=== PATIENT | female | born 1950 | race Two or more races ===

== ENCOUNTER → 2016-11-28 | Outpatient (CLI) | payer MEDICARE, OTHER ==
--- NOTE | 2016-11-30 11:04 | HM ---
Date Performed: 11/29/2016 Time Performed: 12:10:00 HOOKUP DATE: 11/29/16 12:10:00 PM Tue ANALYSIS START TIME: 11/29/2016 12:15:00 PM ANALYSIS END TIME: 11/30/2016 11:38:00 AM PATIENT AGE: 66 PATIENT HEIGHT PATIENT WEIGHT DRUG LIST PATIENT DIAGNOSIS: palpitations TEST NARRATIVE: The patient's average heart rate was 78 BPM. Heart rates greater than 120 B PM were noted 8% of the time. Heart rates less than 50 BPM were noted 9% of the time. No pauses exceeding 2.0 seconds were noted. 6723 ventricular ectopics, which represented 6% of the total be at count, were noted. The highest ventricular ectopic frequency occurred from 03:00 PM to 04:00 PM T ue. During this time 825 VE(s) occurred. Ventricular ectopics were observed as 6499 isolated beat(s ) and as 111 couplet(s). No runs were noted. Some of the ventricular beats occurred in bigeminal cy cles. 1 supraventricular ectopics, which represented < 1% of the total beat count, were noted. T he highest supraventricular ectopic frequency occurred from 08:00 AM to 09:00 AM Wed. During this ti me 1 SVE(s) occurred. Multiple episodes of ST depression (defined as -1.0 mm or more) were noted in channel 1. The maximum depression of -2.4 mm occurred at 06:51:14 PM Tue. Multiple episodes of ST depression (defined as -1.0 mm or more) were noted in channel 2. The maximum depression of -4.6 mm occurred at 07:03:32 PM Tue. Multiple episodes of ST depression (defined as -1.0 mm or more) wer e noted in channel 3. The maximum depression of -2.2 mm occurred at 05:12:20 PM Tue. TEST INTERPRETATION: Sinus rhythm and sinus tachycardia Occasional PVCs Signed by : Han Sood
== END ==
LOC: HCAV 12:32
PROVIDERS: ATTEND Family Medicine
DX: I49.3 Ventricular premature depolarization (principal); R00.2 Palpitations
CPT/HCPCS: 93225; 93226

== ENCOUNTER 2017-12-09 23:12 | Observation (INO) | payer MEDICARE, OTHER ==
[~2017-12-09] VITALS: Ht 162.6 cm; Wt 66.7 kg
[2017-12-09 23:20] VITALS: BP 170/106; PULSE 86; RESP 20; TEMP 97.8; O2SAT 98
[2017-12-09] MEDS ORDERED: TRUS2SOL LEFT EYE (23:29)
[2017-12-09] MEDS ORDERED: LUMI0.01 LEFT EYE (23:29)
[2017-12-09] MEDS ORDERED: SODIUM CHLORIDE 0.9% FLUSH 10 ML FLUSH IVF PRN (23:30)
[2017-12-09 23:34] LABS: AUTOMATED NEUTROPHIL # 3.9 TH/MM3 (1.8-7.7); BASOPHIL % 0.6 % (0.0-2.0); EOSINOPHIL # 0.2 TH/MM3 (0-0.4); EOSINOPHIL % 2.2 % (0.0-4.0); HEMOGLOBIN 14.4 GM/DL (11.6-15.3); LYMPHOCYTE # 2.3 TH/MM3 (1.0-4.8); MEAN CORPUSCULAR HEMOGLOBIN 29.9 PG (27.0-34.0); MEAN CORPUSCULAR HGB CONC 33.6 % (32.0-36.0); MEAN PLATELET VOLUME 9.4 FL (7.0-11.0); MONO % 6.8 % (0.0-8.0); MONOCYTE # 0.5 TH/MM3 (0-0.9); NEUT % 56.4 % (16.0-70.0); PLATELET COUNT 210 TH/MM3 (150-450); RED BLOOD COUNT 4.83 MIL/MM3 (4.00-5.30); RED CELL DISTRIBUTION WIDTH 12.4 % (11.6-17.2); WHITE BLOOD COUNT 6.9 TH/MM3 (4.0-11.0)
[2017-12-09 23:42] VITALS: O2SAT 98
[2017-12-09 23:42] LABS: CHLORIDE 107 MEQ/L (98-107); SODIUM (NA) 140 MEQ/L (136-145)
[2017-12-09 23:45] LABS: CALCIUM 9.3 MG/DL (8.5-10.1)
[2017-12-09 23:46] LABS: ALBUMIN 3.7 GM/DL (3.4-5.0); BICARBONATE 28.4 MEQ/L (21.0-32.0); BLOOD UREA NITROGEN 17 MG/DL (7-18); GLUCOSE,RANDOM 96 MG/DL (74-106); MAGNESIUM 2.4 MG/DL (1.5-2.5)
[2017-12-09 23:47] LABS: PROTHROMBIN TIME - PATIENT 10.3 SEC (9.8-11.6)
[2017-12-09 23:48] LABS: ALT (GPT) 24 U/L (10-53)
[2017-12-09 23:49] LABS: AST (GOT) 23 U/L (15-37); CREATININE 0.87 MG/DL (0.50-1.00); GLOMERULAR FILTRATION RATE 65 ML/MIN (>89)
[2017-12-09 23:50] LABS: TOTAL BILIRUBIN ADULT 0.2 MG/DL (0.2-1.0); TOTAL PROTEIN 7.4 GM/DL (6.4-8.2)
[2017-12-09 23:51] LABS: ALKALINE PHOSPHATASE 145 U/L (45-117)
--- NOTE | 2017-12-09 23:53 | RADRPT ---
EXAM DATE/TIME: 12/09/2017 23:27 [place] COMPARISON: No previous studies available for comparison. INDICATIONS : Chest pain. MEDICAL HISTORY : Glaucoma. SURGICAL HISTORY : section. Eye surgery, right. ENCOUNTER: Initial ACUITY: 1 day PAIN SCORE: 5/10 LOCATION: Left chest FINDINGS: The cardiac silhouette is normal in transverse diameter. The lungs are free of acute parenchymal opac ity. No effusions are identified. There is mild multilevel degenerative change throughout the spine. CONCLUSION: 1. No acute cardiopulmonary disease. Shaw Nichols MD on December 09, 2017 at 23:51 Board Certified Radiologist. This report was verified electronically.
[2017-12-09 23:54] LABS: TROPONIN I 0.03 NG/ML (0.02-0.05)
[2017-12-10] VITALS (13 sets, daily range): BP systolic 110–162; BP diastolic 57–98; PULSE 52–78; RESP 9–18; TEMP 97.3–98.5; O2SAT 97–100
--- NOTE | 2017-12-10 00:13 | PD ---
HPI Chief Complaint: Cardiac Complaint Time Seen by Provider: 23:21 Travel History International Travel<30 days: No Contact w/Intl Traveler<30days: No Traveled to known affect area: No History of Present Illness HPI The patient is a 67-year-old female with no known history of heart disease who complains of palpitations for approximately 3 hours now. She denies any shortness of breath. She denies any syncopal or near syncopal spells. She denies any chest pain but does have a minimal amount of tightness associated with these palpitations. Her last stress test was 10-12 years ago. She does not smoke. She does not abuse alcohol and is not in any withdrawal of any alcohol or medication. She denies more than a cup of coffee in the morning and does not drink tea very often. She never drinks campos. The patient does have a history of premature ventricular beats. She had a Holter monitor done about a year ago on November 292016. The results show 6723 ventricular ectopic beats which represented 6% of the total beat count. There were episodes of bigeminy present. There were 111 couplets. No runs were noted. PFSH Past Medical History Glaucoma: Yes Past Surgical History Eye Surgery: Yes (for glaucoma) Social History Alcohol Use: Yes Tobacco Use: No Substance Use: No Allergies-Medications (Allergen,Severity, Reaction): Uncoded Allergies: SEAFOOD (Allergy, Severe, Anaphylaxis, 12/09/17) Reported Meds & Prescriptions Reported Meds & Active Scripts Active Reported Trusopt Opth Drops (Dorzolamide HCl) 2% Soln 1 Drop LEFT EYE BID Lumigan Opth Drops (Bimatoprost) 0.01% Soln 1 Drop LEFT EYE HS Review of Systems Except as stated in HPI: all other systems reviewed are Neg Physical Exam Narrative GENERAL: The patient is alert, oriented 3 in no apparent distress. Her blood pressure 170/106 but the rest of her vital signs are normal. Repeat blood pressure is 153/92. SKIN: Focused skin assessment warm/dry. HEAD: Atraumatic. Normocephalic. EYES: Pupils equal and round. No scleral icterus. No injection or drainage. ENT: No nasal bleeding or discharge. Mucous membranes pink and moist. NECK: Trachea midline. No JVD. CARDIOVASCULAR: Regular rate and rhythm. No murmur appreciated. Occasional PVCs are heard and seen on the monitor. RESPIRATORY: No accessory muscle use. Clear to auscultation. Breath sounds equal bilaterally. GASTROINTESTINAL: Abdomen soft, non-tender, nondistended. Hepatic and splenic margins not palpable. MUSCULOSKELETAL: No obvious deformities. No clubbing. No cyanosis. No edema. NEUROLOGICAL: Awake and alert. No obvious cranial nerve deficits. Motor grossly within normal limits. Normal speech. PSYCHIATRIC: Appropriate mood and affect; insight and judgment normal. The patient does not appear to be particularly anxious. Data Data Last Documented VS Vital Signs Date Time Temp Pulse Resp B/P (MAP) Pulse Ox O2 Delivery O2 Flow Rate FiO2 12/09/17 23:43 90 98 Room Air 12/09/17 23:20 20 170/106 (127) Orders Orders Electrocardiogram (12/09/17 23:23) Ckmb (Isoenzyme) Profile (12/09/17 23:23) Complete Blood Count With Diff (12/09/17 23:23) Comprehensive Metabolic Panel (12/09/17 23:23) Magnesium (Mg) (12/09/17 23:23) Prothrombin Time / Inr (Pt) (12/09/17 23:23) Act Partial Throm Time (Ptt) (12/09/17 23:23) Troponin I (12/09/17 23:23) Ecg Monitoring (12/09/17 23:23) Iv Access Insert/Monitor (12/09/17 23:23) Oximetry (12/09/17 23:23) Oxygen Administration (12/09/17 23:23) Sodium Chloride 0.9% Flush (Ns Flush) (12/09/17 23:30) Chest, Pa & Lat (12/09/17 23:23) CKMB (12/09/17 23:25) CKMB% (12/09/17 23:25) Labs Laboratory Tests Test 12/09/17 23:25 White Blood Count 6.9 TH/MM3 Red Blood Count 4.83 MIL/MM3 Hemoglobin 14.4 GM/DL Hematocrit 43.0 % Mean Corpuscular Volume 89.0 FL Mean Corpuscular Hemoglobin 29.9 PG Mean Corpuscular Hemoglobin Concent 33.6 % Red Cell Distribution Width 12.4 % Platelet Count 210 TH/MM3 Mean Platelet Volume 9.4 FL Neutrophils (%) (Auto) 56.4 % Lymphocytes (%) (Auto) 34.0 % Monocytes (%) (Auto) 6.8 % Eosinophils (%) (Auto) 2.2 % Basophils (%) (Auto) 0.6 % Neutrophils # (Auto) 3.9 TH/MM3 Lymphocytes # (Auto) 2.3 TH/MM3 Monocytes # (Auto) 0.5 TH/MM3 Eosinophils # (Auto) 0.2 TH/MM3 Basophils # (Auto) 0.0 TH/MM3 CBC Comment DIFF FINAL Differential Comment Prothrombin Time 10.3 SEC Prothromb Time International Ratio 1.0 RATIO Activated Partial Thromboplast Time 25.7 SEC Blood Urea Nitrogen 17 MG/DL Creatinine 0.87 MG/DL Random Glucose 96 MG/DL Total Protein 7.4 GM/DL Albumin 3.7 GM/DL Calcium Level 9.3 MG/DL Magnesium Level 2.4 MG/DL Alkaline Phosphatase 145 U/L Aspartate Amino Transf (AST/SGOT) 23 U/L Alanine Aminotransferase (ALT/SGPT) 24 U/L Total Bilirubin 0.2 MG/DL Sodium Level 140 MEQ/L Potassium Level 3.6 MEQ/L Chloride Level 107 MEQ/L Carbon Dioxide Level 28.4 MEQ/L Anion Gap 5 MEQ/L Estimat Glomerular Filtration Rate 65 ML/MIN Total Creatine Kinase 172 U/L Creatine Kinase MB 2.6 NG/ML Troponin I 0.03 NG/ML MDM Medical Decision Making Medical Screen Exam Complete: Yes Emergency Medical Condition: Yes Medical Record Reviewed: Yes Interpretation(s) The EKG shows sinus rhythm with a rate of about 98, left bundle branch block and frequent ectopic premature complexes. On apparently she has a run of trigeminy. There is no acute ST elevation or depression. The coagulation profile is normal. The CBC is normal. The chest x-ray shows no acute cardiopulmonary disease. The complete metabolic profile shows a GFR of 65 and alkaline phosphatase of 145 but is otherwise normal. The cardiac enzymes are normal. Differential Diagnosis Ventricular premature beats, acute coronary syndrome, electrolyte disorder, anemia Narrative Course The patient has premature ventricular beats. She has had this for over a year. She has not had a stress test in over 10 years and I encouraged her to have a stress test tonight. I cannot explain why she gets these beats from electrolyte disorder, anemia, cardiac ischemia or ingestion of cardiac stimulants. The patient will be sent to the chest pain center for stress testing. Diagnosis Primary Impression: Premature ventricular beats Admitting Information Admitting Physician Requests: Observation Shade Talley MD Dec 10, 2017 00:13
[2017-12-10] MEDS ORDERED: TEMAZEPAM 15 MG CAP PO PRN (00:30)
[2017-12-10] MEDS ORDERED: SODIUM CHLORIDE 0.9% FLUSH 10 ML FLUSH IV FLUSH PRN (00:30)
[2017-12-10] MEDS ORDERED: ACETAMINOPHEN 500 MG CPLT PO PRN (00:30)
[2017-12-10 03:20] LABS: TROPONIN I 0.04 NG/ML (0.02-0.05)
[2017-12-10 06:49] LABS: TROPONIN I 0.04 NG/ML (0.02-0.05)
[2017-12-10] MEDS ORDERED: SODIUM CHLORIDE 0.9% FLUSH 10 ML FLUSH IV FLUSH SCH (09:00)
--- NOTE | 2017-12-10 09:40 | HHI.DCPOC ---
Discharge Care Plan Diagnosis: (1) Premature ventricular beats Goals to Promote Your Health * To prevent worsening of your condition and complications * To maintain your health at the optimal level Directions to Meet Your Goals Take your medications as prescribed Follow your dietary instruction Follow activity as directed Keep your appointments as scheduled Take your immunizations and boosters as scheduled If your symptoms worsen call your PCP, if no PCP go to Urgent Care Center or Emergency Room Smoking is Dangerous to Your Health. Avoid second hand smoke Call the 24-hour hour crisis hotline for domestic abuse at Clayton Talley Dec 10, 2017 09:40
--- NOTE | 2017-12-10 10:02 | HHI.HP ---
[facility] Charline Shin MD Admission Diagnosis Premature ventricular beats, chest pain Diagnoses: (1) Premature ventricular beats Diagnosis: Principal Chief Complaint: Irregular heart rate Travel History International Travel<30 Days: No Contact w/Intl Traveler <30 Da: No Traveled to Known Affected Are: No History of Present Illness This is a 67-year-old female with known history of ventricular arrhythmia. Patient had workup done approximately a year ago with Holter monitor. She was followed by her primary call and she believes that Dr. Bianchi evaluated her Holter monitor last year and did not indicate any treatment. The patient states that she does get intermittent episodes monthly. They are not consistent with any specific days or any specific times. She states that yesterday she noticed that she had her heart rate spiked and she was using her watch and heart rate monitor. She states that her heart rate was in the 149 and then it would drop down into the 40s. Whenever it dropped down she feels a little discomfort in her chest. There is no radiation to her neck, back, shoulder, arm. Denied any nausea, vomiting, diaphoresis, shortness of breath, dyspnea, lightheadedness or dizziness. Because her heart rate was up to 140s and dropped down to 40 she came to emergency department for evaluation. She did have workup done emergency department in was unremarkable. There has been no episodes of any tachycardia since being in the hospital. ER physician recommended patient be observed in the hospital for further recommendations. Patient only drinks 1 cup of coffee daily. Review of Systems Cardiovascular: COMPLAINS OF: Palpitations Except as stated in HPI: all other systems reviewed are Neg Past Family Social History Past Medical History Ventricular arrhythmia with premature ventricular complexes Glaucoma Past Surgical History Right eye surgery for glaucoma Reported Medications Reported Meds & Active Scripts Active Reported Trusopt Opth Drops (Dorzolamide HCl) 2% Soln 1 Drop LEFT EYE BID Lumigan Opth Drops (Bimatoprost) 0.01% Soln 1 Drop LEFT EYE HS Allergies: Uncoded Allergies: SEAFOOD (Allergy, Severe, Anaphylaxis, 12/09/17) Family History Review significant for mother at age 34 from breast cancer. Father at age 68 from diabetes Social History Patient denies any tobacco or illicit drug use. She does drink alcohol socially Physical Exam Vital Signs Vital Signs Date Time Temp Pulse Resp B/P (MAP) Pulse Ox O2 Delivery O2 Flow Rate FiO2 12/10/17 08:16 98.5 12/10/17 07:33 99 21 12/10/17 04:36 60 12/10/17 04:36 97.3 60 12 118/98 (105) 99 12/10/17 04:10 80 16 142/69 (93) 99 12/10/17 03:39 98 21 12/10/17 02:57 78 16 142/79 (100) 100 Room Air 12/10/17 02:57 16 100 Room Air 12/10/17 02:00 67 18 162/75 (104) 99 Room Air 12/10/17 00:30 78 18 151/86 (107) 99 Room Air 12/09/17 23:43 90 98 Room Air 12/09/17 23:42 98 Room Air 12/09/17 23:42 98 Room Air 12/09/17 23:20 97.8 86 20 170/106 (127) 98 Physical Exam GENERAL: Well-developed, well-nourished, in no acute distress. alert and orientated HEENT: Head is normocephalic without any lesions or masses noted. Facial features are symmetric. Eyes: Pupils equal round reactive to light. Extraocular muscles are intact. Conjunctivae were clear. Oropharyngeal: Pharynx without any erythema edema. Tongue is midline without deviation. Buccal mucosa is moist without any masses or lesions NECK: Supple without any masses. Trachea midline no deviation. No JVD, no bruits are appreciated CARDIAC: Regular rhythm, regular rate. S1/S2 are heard. No murmurs gallops or rubs. LUNGS: Clear to auscultation bilaterally. No wheeze, rhonchi or rales. No use of accessory muscles on inspiration or expiration. ABDOMEN: Soft, nontender. Nondistended. Bowel sounds heard in all 4 quadrants. No organomegaly or masses. Negative rebound, negative guarding EXTREMITIES: No edema, pulses are equal bilaterally. No cyanosis or clubbing NEUROLOGY: Mood and affect appear appropriate. Cranial nerves II through XII grossly intact. Muscle strength 5/5 in upper and lower extremities bilaterally. Deep tendon reflexes are 2+ in upper and lower extremities bilaterally. Laboratory Laboratory Tests Test 12/09/17 23:25 12/10/17 02:55 12/10/17 05:45 White Blood Count 6.9 Red Blood Count 4.83 Hemoglobin 14.4 Hematocrit 43.0 Mean Corpuscular Volume 89.0 Mean Corpuscular Hemoglobin 29.9 Mean Corpuscular Hemoglobin Concent 33.6 Red Cell Distribution Width 12.4 Platelet Count 210 Mean Platelet Volume 9.4 Neutrophils (%) (Auto) 56.4 Lymphocytes (%) (Auto) 34.0 Monocytes (%) (Auto) 6.8 Eosinophils (%) (Auto) 2.2 Basophils (%) (Auto) 0.6 Neutrophils # (Auto) 3.9 Lymphocytes # (Auto) 2.3 Monocytes # (Auto) 0.5 Eosinophils # (Auto) 0.2 Basophils # (Auto) 0.0 CBC Comment DIFF FINAL Differential Comment Prothrombin Time 10.3 Prothromb Time International Ratio 1.0 Activated Partial Thromboplast Time 25.7 Blood Urea Nitrogen 17 Creatinine 0.87 Random Glucose 96 Total Protein 7.4 Albumin 3.7 Calcium Level 9.3 Magnesium Level 2.4 Alkaline Phosphatase 145 Aspartate Amino Transf (AST/SGOT) 23 Alanine Aminotransferase (ALT/SGPT) 24 Total Bilirubin 0.2 Sodium Level 140 Potassium Level 3.6 Chloride Level 107 Carbon Dioxide Level 28.4 Anion Gap 5 Estimat Glomerular Filtration Rate 65 Total Creatine Kinase 172 128 121 Creatine Kinase MB 2.6 2.0 1.7 Troponin I 0.03 0.04 0.04 Result Diagram: 12/09/17232412/09/172324 Imaging Last Impressions Chest X-Ray 12/09/172322 Signed Impressions: Service Date/Time: Saturday, December 09, 2017 23:27 - CONCLUSION: 1. No acute cardiopulmonary disease. MD Rebekah Abramsi VTE Risk Assessment Caprini VTE Risk Assessment: No/Low Risk (score <= 1) Caprini Risk Assessment Model Point Value = 1 Point Value = 2 Point Value = 3 Point Value = 5 Age 41-60 Minor surgery BMI > 25 kg/m2 Swollen legs Varicose veins or History of unexplained or recurrent spontaneous Oral contraceptives or hormone replacement Sepsis (< 1 month) Serious lung disease, including pneumonia (< 1 month) Abnormal pulmonary function Acute myocardial infarction Congestive heart failure (< 1 month) History of inflammatory bowel disease Medical patient at bed rest Age 61-74 Arthroscopic surgery Major open surgery (> 45 min) Laparoscopic surgery (> 45 min) Malignancy Confined to bed (> 72 hours) Immobilizing plaster cast Central venous access Age >= 75 History of VTE Family history of VTE Factor V Leiden Prothrombin [id number] Lupus anticoagulant Anticardiolipin antibodies Elevated serum homocysteine Heparin-induced thrombocytopenia Other congenital or acquired thrombophilia Stroke (< 1 month) Elective arthroplasty Hip, pelvis, or leg fracture Acute spinal cord injury (< 1 month) Prophylaxis Regimen Total Risk Factor Score Risk Level Prophylaxis Regimen 0-1 Low Early ambulation 2 Moderate Order ONE of the following: *Sequential Compression Device (SCD) *Heparin 5000 units SQ BID 3-4 Higher Order ONE of the following medications: *Heparin 5000 units SQ TID *Enoxaparin/Lovenox 40 mg SQ daily (WT < 150 kg, CrCl > 30 mL/min) *Enoxaparin/Lovenox 30 mg SQ daily (WT < 150 kg, CrCl > 10-29 mL/min) *Enoxaparin/Lovenox 30 mg SQ BID (WT < 150 kg, CrCl > 30 mL/min) AND/OR *Sequential Compression Device (SCD) 5 or more Highest Order ONE of the following medications: *Heparin 5000 units SQ TID (Preferred with Epidurals) *Enoxaparin/Lovenox 40 mg SQ daily (WT < 150 kg, CrCl > 30 mL/min) *Enoxaparin/Lovenox 30 mg SQ daily (WT < 150 kg, CrCl > 10-29 mL/min) *Enoxaparin/Lovenox 30 mg SQ BID (WT < 150 kg, CrCl > 30 mL/min) AND *Sequential Compression Device (SCD) Assessment and Plan Assessment and Plan Ventricular arrhythmia Patient with chronic history of premature ventricular complexes, however patient indicated he had episode of tachyarrhythmia followed shortly after by bradycardia arrhythmia Patient with low risk for any underlying cardiac ischemia. Patient greater than 50 years old. No other risk factors EKG shows sinus rhythm with PVCs, does not appear to be any ST changes Telemetry was reviewed during her entire stay in the hospital and there was no episodes of any tachyarrhythmia, patient did have bradycardia from 4247 while sleeping Unable to use medication at this time for PVCs/ventricular arrhythmia secondary to bradycardia Discussed with cardiology, since we do not have any episodes of any tachy/ bradycardia arrhythmia, the patient could undergo Holter monitor evaluation and have outpatient follow-up with her primary medical doctor and if any abnormalities are seen, should have referral to editorial director for recommendations Glaucoma Continue home medications DVT prevention Low risk, early ambulation Discharge disposition Discharge home in stable condition Activity: Ad cici. Diet: Regular diet Medication per medication reconciliation Follow-up with primary medical doctor in 1 week Clayton Talley Dec 10, 2017 10:02
--- NOTE | 2017-12-10 15:46 | EKG ---
Date Performed: 12/10/2017 Time Performed: 02:54:38 PTAGE: 67 years EKG: Sinus rhythm WITH OCCASIONAL VENTRICULAR PREMATURE COMPLEXES LEFT BUNDLE BRANCH BLOCK ABNORMAL ECG Compared to PREVIOUS TRACING , the patient is having less frequent ectopy. PREVIOUS TRACIN12/10/19 18 23.18.39 DOCTOR: Constance Martins Interpretating Date/Time 12/10/2017 15:45:36
--- NOTE | 2017-12-10 15:46 | EKG ---
Date Performed: 12/10/2017 Time Performed: 06:07:43 PTAGE: 67 years EKG: SINUS BRADYCARDIA LEFT BUNDLE BRANCH BLOCK ABNORMAL ECG Compared to PREVIOUS TRACING , the patient is now bradycardic. PREVIOUS TRACIN12/10/2017 02.54 DOCTOR: Constance Martins Interpretating Date/Time 12/10/2017 15:45:54
--- NOTE | 2017-12-10 15:46 | EKG ---
Date Performed: 12/09/2017 Time Performed: 23:18:39 PTAGE: 67 years EKG: Sinus rhythm WITH FREQUENT ECTOPIC PREMATURE COMPLEXES POSSIBLE LEFT ATRIAL ENLARGEMENT LEFT BUNDLE BRANCH BLOCK ABNORMAL ECG NO PREVIOUS TRACING DOCTOR: Constance Martins Interpretating Date/Time 12/10/2017 15:45:01
--- NOTE | 2017-12-12 15:13 | HM ---
Date Performed: 12/10/2017 Time Performed: 11:56:00 HOOKUP DATE: 12/10/17 11:56:00 AM Sun ANALYSIS START TIME: 12/10/2017 12:01:00 PM ANALYSIS END TIME: 12/11/2017 12:04:59 PM PATIENT AGE: 67 PATIENT HEIGHT: 64 PATIENT WEIGHT: 147 DRUG LIST: room # 8402/d/c home PATIENT DIAGNOSIS: PREMATURE VENTRICULAR BEATS / CHEST PAIN TEST NARRATIVE: The patient's average heart rate was 67 BPM. No episodes of tachycardia wer e noted. Heart rates less than 50 BPM were noted 25% of the time. No pauses exceeding 2.0 second s were noted. 7157 ventricular ectopics, which represented 8% of the total beat count, were noted . The highest ventricular ectopic frequency occurred from 04:00 PM to 05:00 PM Sun. During this susan e 630 VE(s) occurred. Ventricular ectopics were observed as 7153 isolated beat(s) and as 1 couplet(s ). No runs were noted. Some of the ventricular beats occurred in bigeminal cycles. 48 supravent ricular ectopics, which represented < 1% of the total beat count, were noted. The highest supraventr icular ectopic frequency occurred from 04:00 PM to 05:00 PM Sun. During this time 8 SVE(s) occurred. Multiple episodes of ST depression (defined as -1.0 mm or more) were noted in channel 1. The m aximum depression of -5.0 mm occurred at 04:31:55 PM Sun. Multiple episodes of ST depression (define d as -1.0 mm or more) were noted in channel 2. The maximum depression of -4.4 mm occurred at 07:08: 17 PM Sun. Multiple episodes of ST depression (defined as -1.0 mm or more) were noted in channel 3. The maximum depression of -1.9 mm occurred at 04:31:51 PM Sun. no diary returned TEST INTERPRETATION: Patient was monitored for 24 hours and 4 minutes. Patient was in normal Sin us rhythm . Average heart rate was 117 bpm. There are periods of sinus bradycardia of 38 bpm at 5:20 am. Patien t was in sinus tachycardia of 117 bpm at 12:07pm. 7157 PVCs and 181 ventricular bigeminal cycle. Ther e is one ventricular couplet. There are 48 PACs. Signed by : Len Rosenberg
== END 2017-12-10 13:55 | disposition home or self-care (01) ==
LOC: PHED 23:12 → PHEDA 12-10 00:34 → PHICU 12-10 04:22
PROVIDERS: ADMIT Hospitalist; ATTEND Hospitalist
DX: I49.3 Ventricular premature depolarization (principal); H40.9 Unspecified glaucoma; Z83.3 Family history of diabetes mellitus; Z80.3 Family history of malignant neoplasm of breast
CPT/HCPCS: 71046; 80053; 82550; 82552; 83735; 84484; 85025; 85610; 85730; 93005; 93225; 93226; 99285; G0378